=== PATIENT | female | born 1970 | race Caucasian/White ===

== ENCOUNTER → 2023-09-03 06:10 | Day surgery (SDC) | payer OTHER, SELFPAY | LOC: GI 06:10 | PROVIDERS: ATTENDING PHYSICIAN Internal Medicine | DX: Z12.11 Encounter for screening for malignant neoplasm of colon (principal); D12.3 Benign neoplasm of transverse colon; K64.8 Other hemorrhoids | CPT/HCPCS: 45380; 88305 ==

== ENCOUNTER → 2023-11-17 16:08 | Outpatient (REF) | payer OTHER, SELFPAY | LOC: HWWDC 16:08 | PROVIDERS: ATTENDING PHYSICIAN Nurse Practitioner Adult Health; FAMILY PHYSICIAN Family Medicine | DX: Z12.31 Encounter for screening mammogram for malignant neoplasm of breast (principal) | CPT/HCPCS: 77063; 77067 ==

== ENCOUNTER → 2025-02-09 11:32 | Outpatient (REF) | payer BC, SELFPAY | LOC: WDC 11:32 | PROVIDERS: ATTENDING PHYSICIAN Nurse Practitioner Adult Health; FAMILY PHYSICIAN Physician Assistant Medical | DX: Z12.31 Encounter for screening mammogram for malignant neoplasm of breast (principal) | CPT/HCPCS: 77063; 77067 ==

== ENCOUNTER 2025-04-04 20:05 | Emergency (ER) | payer BC, SELFPAY ==
[2025-04-04 20:13] VITALS: BMI 26.9
[2025-04-04 20:15] VITALS: BP 146/76
--- NOTE | 2025-04-04 20:25 | ED.GENMED ---
History of Present Illness
General
Chief Complaint: Allergic Reaction
Source: patient
Exam Limitations: none
Time Seen by Provider: 04/04/25 20:14
Nursing documentation reviewed up to this point in time: agreed with
History of Present Illness
History of Present Illness:
Patient to ED with complaint of swelling to right lower orbit. SHe was stung by a bee on right lower orbit approx 3 hours ago. No history of allergic reaction to bees. 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 Complains of increasing pain, swelling,
heat at site. Denies any difficulty breathing or swallowing. Brought self to ED for eval.
Past History
Past History
ED Past Medical History: None
ED Past Surgical History: None
Social History
Personal:
Living: with family
Review of Systems
Review of Systems
Allergies reviewed?: Yes
All Other Systems: ROS reviewed and negative except as documented in HPI and ROS
Constitutional: Reports no symptoms
EENT: Reports other (Swelling and pain to left lower orbit.)
Respiratory: Reports no symptoms
Cardiac: Reports no symptoms
ABD/GI: Reports no symptoms
: Reports no symptoms
Musculoskeletal: Reports no symptoms
Skin: Reports other (bee sting to right lower orbit)
Neurological: Reports no symptoms
Psychiatric: Reports no symptoms
Phy Exam
General Physical Exam
General Presentation: well appearing and mild distress
General age: appears stated age
General Skin: warm and dry
General Habitus: normal
General Mental: alert
ENT Exam
ENT Exam: pharynx normal (Uvula midline, no swelling) and swallowing well
Eye Exam
Eye Exam: EOMI, conjunctiva normal, globe normal and other (swlling and redness at bee sting site right lower orbit. )
Cardiovascular Exam
Cardiovascular Exam: regular rate/rhythm
Pulmonary Exam
Pulmonary Exam: lungs clear and no respiratory distress
Neurological Exam
Neurological Exam: alert, oriented x3, CN II-XII intact, no motor deficits, no sensory deficits, speech normal and normal gait
Musculoskeletal Exam
Musculoskeletal Exam: full ROM
Skin Exam
Skin Exam: warm/dry and other (Bee sting right lower orbit. Swelling and erythema at right lower orbit.)
Psychiatric Exam
Psychiatric Exam: normal mood/affect
Course
Orders/Labs/Results
Orders:
Orders
04/04/25 20:25
Dexamethasone Pf [Decadron] 10 mg PO NOW STA
Vital Signs
Initial and Last Documented VS:
Initial Vital Signs
Pulse Resp BP Pulse Ox
80 18 146/76 96
04/04/25 20:15 04/04/25 20:15 04/04/25 20:15 04/04/25 20:15
Last Documented Vital Signs
Pulse Resp BP Pulse Ox
80 18 146/76 96
04/04/25 20:15 04/04/25 20:15 04/04/25 20:15 04/04/25 20:15
*Pulse Oximetry
SaO2: 96
Oxygen Mode of Delivery: Room air
Patient hypoxic: no
*Critical Care Note
Total Time (30-74mins, 75-104mins- exclusive of procedures): Not Applicable
Update Note
Update Note:
Patient to ED for eval of bee sting to right lower orbit. 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 She reports increasing pain redness and swelling to site. Denies any difficulty breathing or swallowing. No history of bee sting allergy. On exam she
is AAO, nontoxic appearing. VSS, she remains afebrile PUlse ox 99% RA. Moderate amt of swelling noted to right lower orbit, consistent with venom reaction. Lids are not swollen shut. EOMI, conjunctiva clear. LCTA, no wheezing, no stridor.
Pharynx clear. Uvula midline, no swelling. Swallowing, talking without difficulty. No evidence of bee sting allergy. WIll give dose of decadron, start prednisone taper in AM to help reduce severelty of reaction. Discussed with her that the redness
and swelling may continue to advance over the next 2-3 days and she will need to continue ice. She was given instructions on s/s to return to ED. She is discharged home and she will follow up with PCP.
ED Attending Note
-
Portions of this chart may have been created with voice recognition software.� Occasional wrong word or��sound alike� substitutions may have occurred due to the inherent limitations of voice recognition software.
Discharge Plan
Departure
Patient Disposition: Home (Routine Discharge)
Date of Disposition: 04/04/25
Time of Disposition: :31
Patient with high blood pressure during this ER visit?: No
Condition: Good
Covid-19: Not Applicable
Discharge Problem:
Bee sting reaction
Instructions: Cold therapy for pain, Insect bites and stings - ED (DC)
Prescriptions:
New
prednisone 10 mg Tablet
See Rx Instructions .ROUTE .COMPLEX Qty: 30 0RF
Rx Instructions:
Take By Mouth:
40 mg daily x3 days, 30 mg daily x3 days,
20 mg daily x3 days, 10 mg daily x3 days.
No Action
gabapentin 300 MG capsule
300 mg PO TID Qty: 20 0RF
Rx Instructions:
Take 1 tablet every 12 hours 05/25/17, and then every 8 hours starting 05/26/17
hydrocodone-acetaminophen 1 TABLET tablet
1 tab PO Q4HPRN PRN (Reason: severe pain) Qty: 12 0RF
Activity Restrictions/Additional Instructions:
Follow up with your family doctor. Return to the emergency department immediately for any difficulty breathing or swallowing, fever/chills. You can continue to take Benadryl 25-50mg every 4-6 hours as needed for itching. Apply ice to your right
eye 15-20 minutes at a time, 4-5 times daily. The swelling and redness from the bee sting can continue for the next 2-3 days. The prednisone taper should help to lessen the severity of the bee sting reaction.
Interventions
Interventions:
*Risk Screen - Suicide Last Done: 04/04/25 20:06
*General Assessment Last Done: 04/04/25 20:06
*Neglect/Abuse Screening Last Done: 04/04/25 20:06
*ED- Fall Risk Assessment Last Done: 04/04/25 20:15
*ED COVID-19 Vaccine History Last Done: 04/04/25 20:15
ED- Cardiac Assessment Last Done: 04/04/25 20:16
ED- Pulmonary Assessment Last Done: 04/04/25 20:16
ED-Skin Assessment Last Done: 04/04/25 20:16
Discharge Date and Time
Print Language: [id number]
[2025-04-04] MEDS: DECADRON 10 MG PO (20:28)
== END 2025-04-04 20:55 | disposition home or self-care (01) ==
LOC: EMR 20:05
PROVIDERS: EMERGENCY PHYSICIAN Emergency Medicine; FAMILY PHYSICIAN Physician Assistant Medical
DX: T63.441A Toxic effect of venom of bees, accidental (unintentional), initial encounter (principal); X58.XXXA Exposure to other specified factors, initial encounter
CPT/HCPCS: 99283